=== PATIENT | female | born 1985 | race African-American/Black ===

== ENCOUNTER 2016-11-25 23:23 | Emergency (ER) | payer MEDICAID ==
[~2016-11-25] VITALS: Ht 165.1 cm; Wt 73.9 kg
[2016-11-26] MEDS ORDERED: 0.9 % SODIUM CHLORIDE 10 ML DISP.SYRIN. IV PRN
[2016-11-26] MEDS ORDERED: IV NORMAL SALINE 1,000ML 1,000 ML IV SCH
[2016-11-26] MEDS ORDERED: ONDANSETRON PF 4 MG/2 ML VIAL. IV ONE (00:15)
[2016-11-26] MEDS ORDERED: HYDROmorphone PF 1 MG/ML DISP.SYRIN IV/SQ PRN (00:15)
--- NOTE | 2016-11-26 00:18 | PHYS DOC ---
Past History Past Medical History: Sickle Cell Disease Past Surgical History: Smoking: Non-smoker Alcohol Use: None Drug Use: None Adult General Chief Complaint Chief Complaint: GENERALIZED BODY ACHES HPI HPI He is a pleasant 31-year-old -[place] female with known history of sickle cell disease who has never been our facility but comes to us today with her boyfriend because she is in a pain crisis. She is apparently visiting from [place] is going back tomorrow but she is coming on with her typical lower extremity pain crisis. She denies any fevers chills or recent URI symptoms UTI symptoms or recent cough does admit to not eating and drinking as well as she normally does not sleeping well while visiting her boyfriend. She has had frequent history of the same lower extremity pain which is typical for her this described as a throbbing aching it's been going on for several hours and her lower legs. There is nothing new about these symptoms there's no back pain no fevers no neurologic deficits she has noticed some mild discoloration of the fingertips not blue in nature but pink in color. She denies any chest pain and shortness of breath she feels similar to move and kick. She is a 021 at about 32 weeks via last menstrual period she is beginning her dental care and [place] with her primary FINE HAIRER. This point she denies any other complaints like skin changes rash or nausea vomiting or diarrhea. She also denies any change in medications. Review of Systems Review of Systems Constitutional: Denies fever or chills [] Eyes: Denies change in visual acuity, redness, or eye pain [] HENT: Denies nasal congestion or sore throat [] Respiratory: Denies cough or shortness of breath [] Cardiovascular: No additional information not addressed in HPI [] GI: Denies abdominal pain, nausea, vomiting, bloody stools or diarrhea [] : Denies dysuria or hematuria [] Musculoskeletal: lower leg pain Integument: Denies rash or skin lesions [] Neurologic: Denies headache, focal weakness or sensory changes [] Endocrine: Denies polyuria or polydipsia [] Current Medications Current Medications Current Medications Medications (Trade) Dose Ordered Sig/Marsha Start Time Stop Time Status Last Admin Dose Admin Hydromorphone HCl (Dilaudid) 1 mg PRN Q15MIN PRN 11/26/16 00:00 5/7/17 23:59 UNV Ondansetron HCl (Zofran) 4 mg 1X ONCE 11/26/16 00:00 11/26/16 00:01 UNV Sodium Chloride (Normal Saline Flush) 10 ml QSHIFT PRN 11/26/16 00:00 UNV Allergies Allergies Pen VK unknown reaction Demerol reaction hallucinations Morphine reaction nausea and vomiting abdominal cramping Physical Exam Physical Exam Constitutional: Well developed, well nourished, no acute distress, non-toxic appearance. [] HENT: Normocephalic, atraumatic, bilateral external ears normal, oropharynx moist, no oral exudates, nose normal. [] Eyes: PERRLA, EOMI, conjunctiva normal, no discharge. [] Neck: Normal range of motion, no tenderness, supple, no stridor. [] Cardiovascular:Heart rate regular rhythm, no murmur [] Lungs & Thorax: Bilateral breath sounds clear to auscultation [] Abdomen: Bowel sounds normal, soft, no tenderness, no masses, no pulsatile masses. [] Skin: Warm, dry, no erythema, no rash. [] Back: No tenderness, no CVA tenderness. [] Extremities: No tenderness, no cyanosis, no clubbing, ROM intact, no edema. [] Neurologic: Alert and oriented X 3, normal motor function, normal sensory function, no focal deficits noted. [] Psychologic: Affect normal, judgement normal, mood normal. [] Current Patient Data Vital Signs Vital Sign - Last 24 Hours 11/25/16 23:45 Temp 98.5 Pulse 97 Resp 20 Pulse Ox 95 O2 Delivery Room Air EKG EKG [] Radiology/Procedures Radiology/Procedures [] Course & Med Decision Making Course & Med Decision Making Pertinent Labs and Imaging studies reviewed. (See chart for details) [Is a pleasant 31-year-old female presents with typical pain crisis in her lower extremities of her joints and lower legs with her sickle cell disease. She was last hospitalized several weeks ago with similar presentation in [place]. She denies any fevers or chills denies any new symptoms admits she has been eating or sleeping as well as she is visiting her boyfriend from [place] this point time she still feels her baby without issue heart tones are checked and are normal. Patient's white blood cell count is elevated at 17,000 but this may be due to accommodation of her being as well as her acute pain syndrome. She has a predominance of neutrophils immature cells which is typical for this presentation being and having sickle cell crisis. She is feeling pain is improved with fluids and Dilaudid, Zofran and Benadryl. She has no nausea and no abdominal pain no chest pain no shortness of breath no neurologic complaints this time. Patient will be discharged with oral medications to include Zofran and Percocet which is what she typically takes for her pain crises she is returning to her primary care and she went tomorrow in [place]. She was given precautions here in the emergency department to return for any worsening symptoms fevers chills or other issues. We did an evaluation of her urinalysis which demonstrated some bacteria, white blood cells , epithelial cells, and blood but unfortunately this urine was contaminated I do not believe that a source for her pain is from infection like in her lungs or her urine which is the typical supporting event causes pain crises. At this point patient will be given all challenge and then discharged home. Impression: Sickle cell pain crisis Disposition discharged home with 48 hour follow-up with her primary care doctor and COLLAR SHAPER OPERATOR. Disposition includes discharge instructions when to return for cautions and treatment instructions for the use of narcotics and Zofran.] Dragon Disclaimer Dragon Disclaimer This chart was dictated in whole or in part using Voice Recognition software in a busy, high-work load, and often noisy Emergency Department environment. It may contain unintended and wholly unrecognized errors or omissions. Departure Departure: Impression: Primary Impression: Sickle cell pain crisis Additional Impression: Leukocytosis Disposition: 01 HOME, SELF-CARE Condition: IMPROVED Referrals: PCP,NO (PCP) Patient Instructions: Sickle Cell Anemia, Sickle Cell Pain Crisis Additional Instructions: Please return immediately for any new or increasing pain despite treatment with oral medications. Please return for any fever greater 102.2 despite treatment please return for any question or concern she might have oriented do not failure child moving at approximately 8-12 hours. I would advise that you follow up with her primary care COLLAR SHAPER OPERATOR when you return to [place] next 24-48 hours Scripts Ondansetron (ZOFRAN ODT) 8 Mg Tab.rapdis 8 MG PO TID, #14 Prov: CELESTINA MILAN MD 11/26/16 Oxycodone Hcl/Acetaminophen (PERCOCET 5-325 MG TABLET) 1 Each Tablet 1-2 TAB PO Q4-6HRS, #15 TAB Prov: CELESTINA MILAN MD 11/26/16 Problem Qualifiers CELESTINA MILAN MD November 26, 2016 00:18
[2016-11-26 00:49] LABS: BASO # 0.1 x10^3/uL (0.0-0.2); BASO % 0 % (0-3); EOS # 0.1 x10^3/uL (0.0-0.7); EOS % 1 % (0-3); HEMATOCRIT 27.6 % (36.0-47.0); HEMOGLOBIN 9.5 g/dL (12.0-15.5); LYMPH % 18 % (24-48); MEAN CORPUSCULAR HEMOGLOBIN 31 pg (25-35); MEAN CORPUSCULAR HGB CONC 35 g/dL (31-37); MEAN CORPUSCULAR VOLUME 91 fL (79-100); MONO # 1.1 x10^3/uL (0.0-1.1); MONO % 6 % (0-9); NEUT # 12.8 x10^3uL (1.8-7.7); NEUT % 75 % (31-73); PLATELET COUNT 410 x10^3/uL (140-400); RED BLOOD COUNT 3.03 x10^6/uL (3.50-5.40); RED CELL DISTRIBUTION WIDTH 19.1 % (11.5-14.5)
[2016-11-26 00:53] LABS: BILIRUBIN,URINE NEG (NEG); CLARITY,URINE CLEAR; COLOR,URINE YELLOW; GLUCOSE,URINE NEG (NEG); NITRITE,URINE NEG (NEG); UROBILINOGEN,URINE 0.2 mg/dL (0.2 mg/dL)
[2016-11-26 00:54] LABS: BACTERIA,URINE FEW /HPF (0-FEW); RBC,URINE OCC /HPF (0-2); SQUAMOUS EPITHELIAL CELL,UR OCC /LPF; WBC,URINE OCC /HPF (0-4)
[2016-11-26 01:00] LABS: ALBUMIN 2.6 g/dL (3.4-5.0); ALBUMIN/GLOBULIN RATIO 0.6 (1.0-1.7); CALCIUM 8.9 mg/dL (8.5-10.1); CREATININE 0.7 mg/dL (0.6-1.0); GFR 98.3; POTASSIUM 3.5 mmol/L (3.5-5.1); TOTAL BILIRUBIN 0.7 mg/dL (0.2-1.0); TOTAL PROTEIN 7.1 g/dL (6.4-8.2)
[2016-11-26] MEDS ORDERED: HYDROmorphone PF 1 MG/ML DISP.SYRIN IV ONE (01:00)
[2016-11-26] MEDS ORDERED: CALCIUM CARBONATE 500 MG TAB.CHEW PO PRN (01:00)
[2016-11-26 01:30] LABS: % LYMPHS 17 % (24-48); % MONOS 13 % (0-10); % SEGS 70 % (35-66)
[2016-11-26] MEDS ORDERED: diphenhydrAMINE 50 MG/ML VIAL IVP ONE (01:30)
[2016-11-26 01:31] LABS: ANISOCYTOSIS MARKED; HYPOCHROMIA MARKED; PLT ESTIMATE INCREASED (ADEQUATE); POIKILOCYTOSIS SLIGHT; POLYCHROMASIA MOD
[2016-11-26 01:32] LABS: HYPERSEGS PRESENT; TARGET CELLS OCC
[2016-11-26 01:33] LABS: OVALOCYTES OCC
[2016-11-26] MEDS ORDERED: OXYC-323 PO (01:52)
[2016-11-26] MEDS ORDERED: ONDA8TAB12 PO (01:52)
[2016-11-26 02:25] VITALS: BP 111/54
== END 2016-11-26 02:25 | disposition home or self-care (01) ==
LOC: ER 23:23
DX: O99.013 Anemia complicating pregnancy, third trimester (principal); D72.829 Elevated white blood cell count, unspecified; D57.00 Hb-SS disease with crisis, unspecified; Z3A.32 32 weeks gestation of pregnancy; Z88.0 Allergy status to penicillin; Z88.5 Allergy status to narcotic agent; Z88.8 Allergy status to other drugs, medicaments and biological substances
CPT/HCPCS: 36415; 80053; 81001; 85007; 85027; 85045; 96361; 96374; 96375; 99285; J1170; J1200; J2405; J7030

== ENCOUNTER 2017-02-28 22:30 | Emergency (ER) | payer MEDICAID ==
[~2017-02-28] VITALS: Ht 165.1 cm; Wt 73.9 kg
[2017-02-28 22:30] VITALS: BP 133/76
[~2017-02-28 22:30] MED LIST: ONDA8TAB12 PO; OXYC-323 PO
--- NOTE | 2017-02-28 23:10 | PHYS DOC ---
Past History Past Medical History: Sickle Cell Disease Past Surgical History: Smoking: Non-smoker Alcohol Use: None Drug Use: None Adult General Chief Complaint Chief Complaint: BACK PAIN OR INJURY HPI HPI Patient is a age year old female who presents with complaint of right-sided back and shoulder pain. The patient states she has history of sickle cell anemia. The patient states that she recently moved to the [facility] from [place]. The patient was seen in this emergency department on November 25, 2016 and was treated for sickle cell pain crisis at that time. Patient states that she traveled back to [place] and saw her physician after that visit. Patient states that she has recently moved back here within the last week and states that she plans on staying here. The patient states that she has Percocet at home which she takes as needed for pain symptoms. Patient states that she took this approximately 2 hours prior to arrival and states that this has not helped with her pain. The patient currently rates her pain as 9 out of 10 on my evaluation. Patient states that she has full range of motion in her right upper extremity. Patient states her symptoms feel similar to previous pain crisis issues. Denies chest pain, shortness of breath, or fever. Review of Systems Review of Systems Constitutional: Denies fever or chills [] Eyes: Denies change in visual acuity, redness, or eye pain [] HENT: Denies nasal congestion or sore throat [] Respiratory: Denies cough or shortness of breath [] Cardiovascular: Denies chest pain or edema [] GI: Denies abdominal pain, nausea, vomiting, bloody stools or diarrhea [] : Denies dysuria or hematuria [] Musculoskeletal: Back pain, right shoulder pain [] Integument: Denies rash or skin lesions [] Neurologic: Denies headache, focal weakness or sensory changes [] Allergies Allergies Allergies Coded Allergies Type Severity Reaction Last Updated Verified meperidine Allergy Intermediate HALLUCINATIONS 11/26/16 Yes Penicillins Allergy Unknown 11/26/16 Yes morphine Adverse Reaction Intermediate NAUSEA AND VOMITING 11/26/16 Yes Physical Exam Physical Exam Constitutional: Alert, afebrile, appears in mild to moderate discomfort. [] HENT: Normocephalic, atraumatic, bilateral external ears normal, oropharynx moist, no oral exudates, nose normal. [] Eyes: PERRLA, EOMI, conjunctiva normal, no discharge. [] Neck: Normal range of motion, no tenderness, supple, no stridor. [] Cardiovascular:Heart rate regular rhythm, no murmur [] Lungs & Thorax: Bilateral breath sounds clear to auscultation [] Abdomen: Bowel sounds normal, soft, no tenderness, no masses, no pulsatile masses. [] Skin: Warm, dry, no erythema, no rash. [] Back: Right upper and mid thoracic muscle tenderness to palpation, no CVA tenderness. [] Extremities: Mild tenderness to palpation over right deltoid, no cyanosis, no clubbing, ROM intact, no edema. [] Neurologic: Alert and oriented X 3, normal motor function, normal sensory function, no focal deficits noted. [] Current Patient Data Vital Signs Vital Signs Date Time Temp Pulse Resp B/P (MAP) Pulse Ox O2 Delivery O2 Flow Rate FiO2 02/28/17 23:40 20 98 Room Air 02/28/17 22:30 98.8 67 Lab Results Laboratory Tests Test 02/28/17 23:18 02/28/17 23:50 Bedside Urine HCG, Qualitative hcg negative White Blood Count 11.0 x10^3/uL Red Blood Count 3.76 x10^6/uL Hemoglobin 10.0 g/dL Hematocrit 28.8 % Mean Corpuscular Volume 77 fL Mean Corpuscular Hemoglobin 27 pg Mean Corpuscular Hemoglobin Concent 35 g/dL Red Cell Distribution Width 21.3 % Platelet Count 380 x10^3/uL Neutrophils (%) (Auto) 58 % Lymphocytes (%) (Auto) 29 % Monocytes (%) (Auto) 7 % Eosinophils (%) (Auto) 4 % Basophils (%) (Auto) 2 % Neutrophils # (Auto) 6.4 x10^3uL Lymphocytes # (Auto) 3.2 x10^3/uL Monocytes # (Auto) 0.7 x10^3/uL Eosinophils # (Auto) 0.5 x10^3/uL Basophils # (Auto) 0.2 x10^3/uL Platelet Estimate Adequate Giant Platelets Few Hypochromasia Slight Anisocytosis Mod Microcytosis Slight Sodium Level 142 mmol/L Potassium Level 3.1 mmol/L Chloride Level 107 mmol/L Carbon Dioxide Level 27 mmol/L Anion Gap 8 Blood Urea Nitrogen 6 mg/dL Creatinine 1.0 mg/dL Estimated GFR (Cockcroft-Gault) 78.8 Glucose Level 100 mg/dL Calcium Level 8.4 mg/dL Current Medications Medications (Trade) Dose Ordered Sig/Marsha Route PRN Reason Start Time Stop Time Status Last Admin Dose Admin Hydromorphone HCl (Dilaudid) 1 mg 1X ONCE IM 02/28/17 23:30 03/01/17 00:01 DC 02/28/17 23:40 Ondansetron HCl (Zofran Odt) 4 mg 1X ONCE PO 02/28/17 23:30 03/01/17 00:01 DC 02/28/17 23:40 EKG EKG Not performed [] Radiology/Procedures Radiology/Procedures Not performed [] Course & Med Decision Making Course & Med Decision Making Pertinent Labs and Imaging studies reviewed. (See chart for details) Patient was given IM Dilaudid and oral Zofran in the emergency department. Vital signs are stable. Hemoglobin appears stable from previous visit. Patient will be discharged with referral to Dr. Naik of Hematology in 1-2 weeks for follow up of her Sickle Cell Anemia. Advised continued use of home pain medication as needed. Recommended return to the emergency department for any worsening symptoms. Patient voiced understanding and in agreement with treatment plan.[] Dragon Disclaimer Dragon Disclaimer This chart was dictated in whole or in part using Voice Recognition software in a busy, high-work load, and often noisy Emergency Department environment. It may contain unintended and wholly unrecognized errors or omissions. Departure Departure: Impression: Primary Impression: Sickle cell pain crisis Disposition: HOME, SELF-CARE Condition: IMPROVED Referrals: LEA NAIK MD Patient Instructions: Sickle Cell Pain Crisis Additional Instructions: Follow up with Dr. Naik of Hematology in 1-2 weeks. [facility] has a Sickle Cell clinic. Contact them at for more information and to schedule an appointment for your child as needed. Return to the emergency department for any worsening symptoms. MICKY HUNT MD Feb 28, 2017 23:10
[2017-02-28] MEDS ORDERED: ONDANSETRON ODT 4 MG TAB.RAPDIS PO ONE (23:30)
[2017-02-28] MEDS ORDERED: HYDROmorphone PF 1 MG/ML DISP.SYRIN IM ONE (23:30)
[2017-03-01 00:07] LABS: BASO # 0.2 x10^3/uL (0.0-0.2); BASO % 2 % (0-3); EOS # 0.5 x10^3/uL (0.0-0.7); EOS % 4 % (0-3); HEMATOCRIT 28.8 % (36.0-47.0); LYMPH # 3.2 x10^3/uL (1.0-4.8); LYMPH % 29 % (24-48); MEAN CORPUSCULAR HEMOGLOBIN 27 pg (25-35); MEAN CORPUSCULAR HGB CONC 35 g/dL (31-37); MEAN CORPUSCULAR VOLUME 77 fL (79-100); MONO # 0.7 x10^3/uL (0.0-1.1); MONO % 7 % (0-9); NEUT # 6.4 x10^3uL (1.8-7.7); NEUT % 58 % (31-73); PLATELET COUNT 380 x10^3/uL (140-400); RED BLOOD COUNT 3.76 x10^6/uL (3.50-5.40); RED CELL DISTRIBUTION WIDTH 21.3 % (11.5-14.5)
[2017-03-01 00:08] LABS: CALCIUM 8.4 mg/dL (8.5-10.1); GFR 78.8; POTASSIUM 3.1 mmol/L (3.5-5.1)
[2017-03-01 00:15] LABS: COLOR,URINE YELLOW
[2017-03-01 00:16] LABS: BACTERIA,URINE FEW /HPF (0-FEW); BILIRUBIN,URINE NEG (NEG); CLARITY,URINE HAZY; GLUCOSE,URINE NEG (NEG); NITRITE,URINE NEG (NEG); UROBILINOGEN,URINE 0.2 mg/dL (0.2 mg/dL)
[2017-03-01 00:17] LABS: SQUAMOUS EPITHELIAL CELL,UR FEW /LPF
[2017-03-01 00:50] LABS: ANISOCYTOSIS MOD; HYPOCHROMIA SLIGHT; PLT ESTIMATE ADEQUATE (ADEQUATE)
[2017-03-01 00:51] LABS: MICROCYTOSIS SLIGHT
== END 2017-03-01 00:45 | disposition home or self-care (01) ==
LOC: ER 22:30
DX: D57.00 Hb-SS disease with crisis, unspecified (principal); Z88.5 Allergy status to narcotic agent; Z88.0 Allergy status to penicillin; Z88.8 Allergy status to other drugs, medicaments and biological substances
CPT/HCPCS: 36415; 80048; 81001; 81025; 85008; 85027; 85045; 87086; 96372; 99284; J1170; Q0162

== ENCOUNTER 2017-03-12 17:41 | Emergency (ER) | payer MEDICAID ==
[~2017-03-12] VITALS: Ht 170.2 cm; Wt 74.8 kg
[2017-03-12] MEDS ORDERED: 0.9 % SODIUM CHLORIDE 10 ML DISP.SYRIN. IV PRN (18:30)
[2017-03-12] MEDS ORDERED: HYDROmorphone PF 1 MG/ML DISP.SYRIN IV/SQ PRN (18:30)
--- NOTE | 2017-03-12 18:33 | PHYS DOC ---
Past History Past Medical History: Sickle Cell Disease Past Surgical History: Smoking: Non-smoker Alcohol Use: None Drug Use: None Adult General Chief Complaint Chief Complaint: GENERALIZED BODY ACHES [facility] HPI She is a pleasant 31-year-old female with history of sickle cell disease who has been to our facility now on her third visit for sickle cell crisis. Her typical crisis of ulcer right shoulder her lower legs and arms bilaterally. There is nothing new about this particular event. Her pain began 2 days ago as got progressively worse as she has run out of her Vicodin. She is recently visited her boyfriend from out of town back in November this facility for pain crisis. She's been our facility now a second time. She has no local primary care physician, she has no local stacker tender. She was referred to the specialist which she came to us in the last 6 weeks. She is Under a Medicare treatment plan does not allow her to receive treatment as she has not transferred those benefits to the state. She knows that she has limited resources and comes here today to refill her medications. She also also asked us to treat her pain. Patient denies any fever, chills, focal neurologic deficits, chest pain, shortness breath, abdominal pain, nausea, vomiting, diarrhea, URI symptoms, UTI symptoms other symptoms. She denies rash or swollen joints. Her pain presently is an 8 of 10 it is not worse with position or movement. Review of Systems Review of Systems Constitutional: Denies fever or chills [] Eyes: Denies change in visual acuity, redness, or eye pain [] HENT: Denies nasal congestion or sore throat [] Respiratory: Denies cough or shortness of breath [] Cardiovascular: No additional information not addressed in HPI [] GI: Denies abdominal pain, nausea, vomiting, bloody stools or diarrhea [] : Denies dysuria or hematuria [] Musculoskeletal: He complains of lower back pain, right shoulder pain lower leg pain bilaterally. This is her typical crisis. Integument: Denies rash or skin lesions [] Neurologic: Denies headache, focal weakness or sensory changes [] Endocrine: Denies polyuria or polydipsia [] Allergies Allergies Allergies Coded Allergies Type Severity Reaction Last Updated Verified meperidine Allergy Intermediate HALLUCINATIONS 11/26/16 Yes Penicillins Allergy Unknown 11/26/16 Yes morphine Adverse Reaction Intermediate NAUSEA AND VOMITING 11/26/16 Yes Physical Exam Physical Exam Vital signs recorded on the chart they're within normal limits. Constitutional: Well developed, well nourished, uncomfortable but nontoxic in appearance no acute distress. HENT: Normocephalic, atraumatic, bilateral external ears normal, oropharynx moist, no oral exudates, nose normal. [] Eyes: PERRLA, EOMI, conjunctiva normal, no discharge. [] Neck: Normal range of motion, no tenderness, supple, no stridor. [] Cardiovascular:Heart rate regular rhythm, no murmur [] Lungs & Thorax: Bilateral breath sounds clear to auscultation [] Abdomen: Bowel sounds normal, soft, no tenderness, no masses, no pulsatile masses. [] Skin: Warm, dry, no erythema, no rash. [] Back: No tenderness, no CVA tenderness. [] Extremities: She has tenderness but no soft tissue swelling of the lateral right shoulder. She has no tenderness in the legs bilaterally she has normal range of motion in the legs bilaterally with no edema no clubbing and no cyanosis. Patient has no rash that is identifiable on upper and lower extremities. Neurologic: Alert and oriented X 3, normal motor function, normal sensory function, no focal deficits noted. [] Psychologic: Affect normal, judgement normal, mood normal. [] Current Patient Data Vital Signs Vital Signs Date Time Temp Pulse Resp B/P (MAP) Pulse Ox O2 Delivery O2 Flow Rate FiO2 03/12/17 17:41 99.0 75 20 96 Room Air Lab Results Laboratory Tests Test 03/12/17 18:30 03/12/17 18:50 03/12/17 19:16 Urine Collection Type Unknown Urine Color Yellow Urine Clarity Clear Urine pH 5.5 Urine Specific [employer] [place] 1.015 Urine Protein Neg (NEG-TRACE) Urine Glucose (UA) Neg mg/dL (NEG) Urine Ketones (Stick) Neg mg/dL (NEG) Urine Blood Neg (NEG) Urine Nitrite Neg (NEG) Urine Bilirubin Neg (NEG) Urine Urobilinogen Dipstick 0.2 mg/dL (0.2 mg/dL) Urine Leukocyte Esterase Neg (NEG) Urine RBC Rare /HPF (0-2) Urine WBC 1-4 /HPF (0-4) Urine Squamous Epithelial Cells None /LPF Urine Bacteria 0 /HPF (0-FEW) Urine Mucus Mod /LPF White Blood Count 7.7 x10^3/uL (4.0-11.0) Red Blood Count 3.84 x10^6/uL (3.50-5.40) Hemoglobin 10.3 g/dL (12.0-15.5) L Hematocrit 29.7 % (36.0-47.0) L Mean Corpuscular Volume 77 fL (79-100) L Mean Corpuscular Hemoglobin 27 pg (25-35) Mean Corpuscular Hemoglobin Concent 35 g/dL (31-37) Red Cell Distribution Width 21.4 % (11.5-14.5) H Platelet Count 294 x10^3/uL (140-400) Neutrophils (%) (Auto) 44 % (31-73) Lymphocytes (%) (Auto) 46 % (24-48) Monocytes (%) (Auto) 6 % (0-9) Eosinophils (%) (Auto) 3 % (0-3) Basophils (%) (Auto) 1 % (0-3) Neutrophils # (Auto) 3.4 x10^3uL (1.8-7.7) Lymphocytes # (Auto) 3.5 x10^3/uL (1.0-4.8) Monocytes # (Auto) 0.5 x10^3/uL (0.0-1.1) Eosinophils # (Auto) 0.2 x10^3/uL (0.0-0.7) Basophils # (Auto) 0.1 x10^3/uL (0.0-0.2) Sodium Level 142 mmol/L (136-145) Potassium Level 3.0 mmol/L (3.5-5.1) L Chloride Level 107 mmol/L (98-107) Carbon Dioxide Level 25 mmol/L (21-32) Anion Gap 10 (6-14) Blood Urea Nitrogen 4 mg/dL (7-20) L Creatinine 0.8 mg/dL (0.6-1.0) Estimated GFR (Cockcroft-Gault) 101.9 BUN/Creatinine Ratio 5 (6-20) L Glucose Level 85 mg/dL (70-99) Calcium Level 8.5 mg/dL (8.5-10.1) Total Bilirubin 0.9 mg/dL (0.2-1.0) Aspartate Amino Transferase (AST) 19 U/L (15-37) Alanine Aminotransferase (ALT) 20 U/L (14-59) Alkaline Phosphatase 75 U/L (46-116) Total Protein 7.3 g/dL (6.4-8.2) Albumin 3.7 g/dL (3.4-5.0) Albumin/Globulin Ratio 1.0 (1.0-1.7) POC Urine HCG, Qualitative hcg negative (Negative) EKG EKG [] Radiology/Procedures Radiology/Procedures [] Course & Med Decision Making Course & Med Decision Making Pertinent Labs and Imaging studies reviewed. (See chart for details) she presents with a typical pain crisis from her sickle cell disease. Our objective today's get her pain under better control at about 3 or lower. She understands that the ER is not placed to get her typical follow-up. We have again discussed follow-up with hematology and a local primary care physician. Last time she was here she was provided stacker tender name. She realizes that one of her challenges is local lack of insurance. We will do we can help her provide her at least a short course of pain medications and antinausea medications until she can see some later this week. We have given her a complete follow-up with primary care physician willing to see new patients in the local community. Time is now 7:30 PM Patient tells me that their symptoms given during CC are improved. We reviewed labs and radiology reports with patient patient's pain is now 5 out of 10 which is improved from her presentation. Her CBC is done showing mild anemia but not require any transfusions. Patient has mild hypokalemia as well reticulocyte count is still pending at this time. Patient is not and her urine looks clear. Had redosed Benadryl and Dilaudid and a continued liter of fluids. [] Dragon Disclaimer Dragon Disclaimer This chart was dictated in whole or in part using Voice Recognition software in a busy, high-work load, and often noisy Emergency Department environment. It may contain unintended and wholly unrecognized errors or omissions. Departure Departure: Impression: Primary Impression: Sickle cell crisis Disposition: 01 HOME, SELF-CARE Condition: STABLE Referrals: PCP,MICHAEL (PCP) LEA BROWN MD Patient Instructions: Hypokalemia, Sickle Cell Anemia, Sickle Cell Pain Crisis Additional Instructions: Please return for any new or increasing symptoms despite treatment. I would encourage her to follow up with the stacker tender referred above. Please follow- up primary care doctor to help you with your chronic management of your issues. Hipolito Haddad MD [facility] [address] [place] [address] Status: Category: Courtesy Specialty: Hematology Specialty2: Internal Medicine Pager: Department: Medicine Bogdan Sanchez MD [facility] [address] [place] [address] [phone] Status: Category: Courtesy Specialty: Hematology Specialty2: Pager: Department: Medicine Landon Nieves MD [facility] [address] [place] [address] [phone] Status: Category: Courtesy Specialty: Hematology Specialty2: Pager: Department: Medicine Scripts Metoclopramide Hcl (REGLAN) 10 Mg Tablet 1 TAB PO TID, #20 TAB Prov: CELESTINA MILAN MD 03/12/17 Diphenhydramine Hcl (BENADRYL) 25 Mg Capsule 25 MG PO QID for 7 Days, #28 CAP Prov: CELESTINA MILAN MD 03/12/17 Hydrocodone Bit/Acetaminophen (HYDROCODONE-APAP 5-325 ) 1 Each Tablet 1 TAB PO PRN Q6HRS Y for PAIN for 7 Days, #14 TAB 0 Refills Prov: CELESTINA MILAN MD 03/12/17 CELESTINA MILAN MD Mar 12, 2017 18:33
[2017-03-12] MEDS ORDERED: ONDANSETRON PF 4 MG/2 ML VIAL. IV ONE (18:35)
[2017-03-12] MEDS ORDERED: IV NORMAL SALINE 1,000ML 1,000 ML IV SCH (18:35)
[2017-03-12] MEDS ORDERED: diphenhydrAMINE 50 MG/ML VIAL IVP ONE ×2 (19:15→20:20)
[2017-03-12 19:25] LABS: BASO # 0.1 x10^3/uL (0.0-0.2); BASO % 1 % (0-3); EOS # 0.2 x10^3/uL (0.0-0.7); EOS % 3 % (0-3); HEMATOCRIT 29.7 % (36.0-47.0); HEMOGLOBIN 10.3 g/dL (12.0-15.5); LYMPH # 3.5 x10^3/uL (1.0-4.8); LYMPH % 46 % (24-48); MEAN CORPUSCULAR HEMOGLOBIN 27 pg (25-35); MEAN CORPUSCULAR HGB CONC 35 g/dL (31-37); MEAN CORPUSCULAR VOLUME 77 fL (79-100); MONO # 0.5 x10^3/uL (0.0-1.1); MONO % 6 % (0-9); NEUT # 3.4 x10^3uL (1.8-7.7); NEUT % 44 % (31-73); PLATELET COUNT 294 x10^3/uL (140-400); RED BLOOD COUNT 3.84 x10^6/uL (3.50-5.40); RED CELL DISTRIBUTION WIDTH 21.4 % (11.5-14.5); WHITE BLOOD COUNT 7.7 x10^3/uL (4.0-11.0)
[2017-03-12 19:34] LABS: ALBUMIN 3.7 g/dL (3.4-5.0); CALCIUM 8.5 mg/dL (8.5-10.1); CREATININE 0.8 mg/dL (0.6-1.0); GFR 101.9; TOTAL BILIRUBIN 0.9 mg/dL (0.2-1.0); TOTAL PROTEIN 7.3 g/dL (6.4-8.2)
[2017-03-12 20:04] LABS: BACTERIA,URINE 0 /HPF (0-FEW); BILIRUBIN,URINE NEG (NEG); CLARITY,URINE CLEAR; COLOR,URINE YELLOW; GLUCOSE,URINE NEG (NEG); NITRITE,URINE NEG (NEG); RBC,URINE RARE /HPF (0-2); UROBILINOGEN,URINE 0.2 mg/dL (0.2 mg/dL)
[2017-03-12] MEDS ORDERED: HYDROmorphone PF 1 MG/ML DISP.SYRIN IV ONE (20:20)
[2017-03-12] MEDS ORDERED: DIPH25CA58 PO (20:23)
[2017-03-12] MEDS ORDERED: HYDR-2758 PO (20:23)
[2017-03-12] MEDS ORDERED: METO10TA81 PO (20:23)
[2017-03-12 20:40] VITALS: BP 118/70
[2017-03-12 22:05] LABS: PLT ESTIMATE ADEQUATE (ADEQUATE)
[2017-03-12 22:06] LABS: ANISOCYTOSIS MOD; HYPOCHROMIA MOD; MICROCYTOSIS MOD; POLYCHROMASIA PRESENT; TARGET CELLS MOD
[2017-03-12 22:07] LABS: OVALOCYTES FEW; TEAR DROP CELLS PRESENT
[2017-03-12 22:15] LABS: SCHISTOCYTES OCC
== END 2017-03-12 20:40 | disposition home or self-care (01) ==
LOC: ER 17:41
DX: D57.00 Hb-SS disease with crisis, unspecified (principal); M25.511 Pain in right shoulder; M79.662 Pain in left lower leg; Z88.5 Allergy status to narcotic agent; Z88.0 Allergy status to penicillin; Z88.8 Allergy status to other drugs, medicaments and biological substances
CPT/HCPCS: 36415; 80053; 81001; 81025; 85025; 85045; 96361; 96374; 96375; 96376; 99285; J1170; J1200; J2405; J7030

== ENCOUNTER 2017-04-14 02:34 | Emergency (ER) | payer SELFPAY ==
[~2017-04-14] VITALS: Ht 170.2 cm; Wt 74.8 kg
[~2017-04-14 02:34] MED LIST changes: +DIPH25CA58 PO; +HYDR-2758 PO; +METO10TA81 PO
[2017-04-14] MEDS ORDERED: IV NORMAL SALINE 1,000ML 1,000 ML IV ONE (03:15)
[2017-04-14 04:42] LABS: BACTERIA,URINE FEW /HPF (0-FEW); BILIRUBIN,URINE NEG (NEG); CLARITY,URINE CLEAR; COLOR,URINE YELLOW; GLUCOSE,URINE NEG (NEG); NITRITE,URINE NEG (NEG); RBC,URINE OCC /HPF (0-2); SQUAMOUS EPITHELIAL CELL,UR FEW /LPF; U PREG PATIENT NEGATIVE (NEG); UROBILINOGEN,URINE 1 mg/dL (0.2 mg/dL); WBC,URINE OCC /HPF (0-4)
[2017-04-14] MEDS ORDERED: HYDROmorphone PF 1 MG/ML DISP.SYRIN IM ONE (05:15)
[2017-04-14] MEDS ORDERED: diphenhydrAMINE 50 MG/ML VIAL ONE (05:32)
[2017-04-14] MEDS ORDERED: HYDROmorphone PF 1 MG/ML DISP.SYRIN IV ONE ×2 (06:00→07:00)
--- NOTE | 2017-04-14 06:01 | PHYS DOC ---
Past History Past Medical History: Sickle Cell Disease Past Surgical History: Smoking: Non-smoker Alcohol Use: None Drug Use: None Adult General Chief Complaint Chief Complaint: BACK PAIN - NO INJURY HPI HPI Patient is a 31 year old F who presents with back and right shoulder pain. Philip has a history of sickle cell anemia and the areas in which she is having pain currently are similar to previous. She does not describe any loss of blood. She denies dizziness and nausea. She denies abdominal pain at this time. She has no other associated signs or symptoms at this time. Review of Systems Review of Systems Constitutional: Denies fever or chills [] Eyes: Denies change in visual acuity, redness, or eye pain [] HENT: Denies nasal congestion or sore throat [] Respiratory: Denies cough or shortness of breath [] Cardiovascular: No additional information not addressed in HPI [] GI: Denies abdominal pain, nausea, vomiting, bloody stools or diarrhea [] : Denies dysuria or hematuria [] Musculoskeletal: Negative except history of present illness Integument: Denies rash or skin lesions [] Neurologic: Denies headache, focal weakness or sensory changes [] Endocrine: Denies polyuria or polydipsia [] Family History Family History Family history of sickle cell anemia Current Medications Current Medications Current Medications Medications (Trade) Dose Ordered Sig/Marsha Start Time Stop Time Status Last Admin Dose Admin Diphenhydramine HCl (Benadryl) 50 mg STK-MED ONCE 04/14/17 05:32 04/14/17 05:33 DC Hydromorphone HCl (Dilaudid) 1 mg 1X ONCE 04/14/17 06:00 04/14/17 06:01 UNV 04/14/17 05:30 1 MG Sodium Chloride 1,000 ml @ 1,000 mls/hr 1X ONCE 04/14/17 03:15 04/14/17 04:14 DC 04/14/17 05:30 1,000 MLS/HR Allergies Allergies Allergies Coded Allergies Type Severity Reaction Last Updated Verified meperidine Allergy Intermediate HALLUCINATIONS 11/26/16 Yes Penicillins Allergy Unknown 11/26/16 Yes morphine Adverse Reaction Intermediate NAUSEA AND VOMITING 11/26/16 Yes Physical Exam Physical Exam Constitutional: Well developed, well nourished, no acute distress, non-toxic appearance. [] HENT: Normocephalic, atraumatic, bilateral external ears normal, oropharynx moist, no oral exudates, nose normal. [] Eyes: PERRLA, EOMI, conjunctiva normal, no discharge. [] Neck: Normal range of motion, no tenderness, supple, no stridor. [] Cardiovascular:Heart rate regular rhythm, no murmur [] Lungs & Thorax: Bilateral breath sounds clear to auscultation [] Abdomen: Bowel sounds normal, soft, no tenderness, no masses, no pulsatile masses. [] Skin: Warm, dry, no erythema, no rash. [] Back: No tenderness, no CVA tenderness. [] Extremities: No tenderness, no cyanosis, no clubbing, ROM intact, no edema. [] Neurologic: Alert and oriented X 3, normal motor function, normal sensory function, no focal deficits noted. [] Psychologic: Affect normal, judgement normal, mood normal. [] Current Patient Data Vital Signs Vital Signs Date Time Temp Pulse Resp B/P (MAP) Pulse Ox O2 Delivery O2 Flow Rate FiO2 04/14/17 05:30 97 04/14/17 02:46 98.6 79 20 Room Air Lab Results Laboratory Tests Test 04/14/17 02:58 Urine Collection Type Unknown Urine Color Yellow Urine Clarity Clear Urine pH 6.5 Urine Specific [place] 1.015 Urine Protein Neg (NEG-TRACE) Urine Glucose (UA) Neg mg/dL (NEG) Urine Ketones (Stick) Neg mg/dL (NEG) Urine Blood Trace (NEG) Urine Nitrite Neg (NEG) Urine Bilirubin Neg (NEG) Urine Urobilinogen Dipstick 1 mg/dL (0.2 mg/dL) Urine Leukocyte Esterase Neg (NEG) Urine RBC Occ /HPF (0-2) Urine WBC Occ /HPF (0-4) Urine Squamous Epithelial Cells Few /LPF Urine Bacteria Few /HPF (0-FEW) Urine Mucus Slight /LPF Urine Test Negative (NEG) EKG EKG [] Radiology/Procedures Radiology/Procedures [] Course & Med Decision Making Course & Med Decision Making Pertinent Labs and Imaging studies reviewed. (See chart for details) Care was transferred to Dr. Teddy Kinney Disclaimer Gregoria Disclaimer This chart was dictated in whole or in part using Voice Recognition software in a busy, high-work load, and often noisy Emergency Department environment. It may contain unintended and wholly unrecognized errors or omissions. Departure Departure: Referrals: PCP,MICHAEL (PCP) NELLA SALDIVAR MD Apr 14, 2017 06:01
[2017-04-14 06:23] LABS: BASO % 0 % (0-3); EOS # 0.4 x10^3/uL (0.0-0.7); EOS % 4 % (0-3); HEMATOCRIT 28.9 % (36.0-47.0); HEMOGLOBIN 10.6 g/dL (12.0-15.5); LYMPH # 3.3 x10^3/uL (1.0-4.8); LYMPH % 31 % (24-48); MEAN CORPUSCULAR HEMOGLOBIN 30 pg (25-35); MEAN CORPUSCULAR HGB CONC 37 g/dL (31-37); MEAN CORPUSCULAR VOLUME 82 fL (79-100); MONO # 0.5 x10^3/uL (0.0-1.1); MONO % 5 % (0-9); NEUT # 6.2 x10^3uL (1.8-7.7); NEUT % 60 % (31-73); PLATELET COUNT 278 x10^3/uL (140-400); RED BLOOD COUNT 3.54 x10^6/uL (3.50-5.40); RED CELL DISTRIBUTION WIDTH 19.8 % (11.5-14.5); WHITE BLOOD COUNT 10.5 x10^3/uL (4.0-11.0)
[2017-04-14 06:24] LABS: ALBUMIN 3.8 g/dL (3.4-5.0); CALCIUM 8.6 mg/dL (8.5-10.1); CREATININE 0.8 mg/dL (0.6-1.0); GFR 101.9; POTASSIUM 3.7 mmol/L (3.5-5.1); TOTAL BILIRUBIN 0.9 mg/dL (0.2-1.0); TOTAL PROTEIN 7.6 g/dL (6.4-8.2)
[2017-04-14] MEDS ORDERED: diphenhydrAMINE 50 MG/ML VIAL IVP ONE ×2 (06:45→07:15)
--- NOTE | 2017-04-14 07:26 | PHYS DOC ---
Past History Past Medical History: Sickle Cell Disease Past Surgical History: Smoking: Non-smoker Alcohol Use: None Drug Use: None Adult General HPI HPI This is a continuation of the ED visit started by Dr. Dick. Review of Systems Review of Systems Current Medications Current Medications Allergies Allergies Physical Exam Physical Exam Current Patient Data Vital Signs Vital Signs Date Time Temp Pulse Resp B/P (MAP) Pulse Ox O2 Delivery O2 Flow Rate FiO2 04/14/17 05:30 97 04/14/17 02:46 98.6 79 20 Room Air Lab Results Laboratory Tests Test 04/14/17 02:58 04/14/17 05:52 Urine Collection Type Unknown Urine Color Yellow Urine Clarity Clear Urine pH 6.5 Urine Specific [place] 1.015 Urine Protein Neg (NEG-TRACE) Urine Glucose (UA) Neg mg/dL (NEG) Urine Ketones (Stick) Neg mg/dL (NEG) Urine Blood Trace (NEG) Urine Nitrite Neg (NEG) Urine Bilirubin Neg (NEG) Urine Urobilinogen Dipstick 1 mg/dL (0.2 mg/dL) Urine Leukocyte Esterase Neg (NEG) Urine RBC Occ /HPF (0-2) Urine WBC Occ /HPF (0-4) Urine Squamous Epithelial Cells Few /LPF Urine Bacteria Few /HPF (0-FEW) Urine Mucus Slight /LPF Urine Test Negative (NEG) White Blood Count 10.5 x10^3/uL (4.0-11.0) Red Blood Count 3.54 x10^6/uL (3.50-5.40) Hemoglobin 10.6 g/dL (12.0-15.5) L Hematocrit 28.9 % (36.0-47.0) L Mean Corpuscular Volume 82 fL (79-100) Mean Corpuscular Hemoglobin 30 pg (25-35) Mean Corpuscular Hemoglobin Concent 37 g/dL (31-37) Red Cell Distribution Width 19.8 % (11.5-14.5) H Platelet Count 278 x10^3/uL (140-400) Neutrophils (%) (Auto) 60 % (31-73) Lymphocytes (%) (Auto) 31 % (24-48) Monocytes (%) (Auto) 5 % (0-9) Eosinophils (%) (Auto) 4 % (0-3) H Basophils (%) (Auto) 0 % (0-3) Neutrophils # (Auto) 6.2 x10^3uL (1.8-7.7) Lymphocytes # (Auto) 3.3 x10^3/uL (1.0-4.8) Monocytes # (Auto) 0.5 x10^3/uL (0.0-1.1) Eosinophils # (Auto) 0.4 x10^3/uL (0.0-0.7) Basophils # (Auto) 0.0 x10^3/uL (0.0-0.2) Sodium Level 144 mmol/L (136-145) Potassium Level 3.7 mmol/L (3.5-5.1) Chloride Level 108 mmol/L (98-107) H Carbon Dioxide Level 26 mmol/L (21-32) Anion Gap 10 (6-14) Blood Urea Nitrogen 7 mg/dL (7-20) Creatinine 0.8 mg/dL (0.6-1.0) Estimated GFR (Cockcroft-Gault) 101.9 BUN/Creatinine Ratio 9 (6-20) Glucose Level 101 mg/dL (70-99) H Calcium Level 8.6 mg/dL (8.5-10.1) Total Bilirubin 0.9 mg/dL (0.2-1.0) Aspartate Amino Transferase (AST) 26 U/L (15-37) Alanine Aminotransferase (ALT) 29 U/L (14-59) Alkaline Phosphatase 86 U/L (46-116) Total Protein 7.6 g/dL (6.4-8.2) Albumin 3.8 g/dL (3.4-5.0) Albumin/Globulin Ratio 1.0 (1.0-1.7) EKG EKG [] Radiology/Procedures Radiology/Procedures [] Course & Med Decision Making Course & Med Decision Making Pertinent Labs and Imaging studies reviewed. (See chart for details) I assumed care of this patient from Dr. Dick at 0600. The patient was resting comfortably, getting IV fluids, waiting for lab results. The patient requested another dose of IV pain medication which I did order. Laboratory results are unremarkable for a patient with a history of sickle cell. I had been waiting for a retic count result, but was informed by labs at this test is sent out to a different facility. Therefore, we will not wait for this result. I rechecked the patient. She is sitting up in bed doing something on her phone. She is in no acute distress. She is alert and appropriate. We discussed the assessment and plan. She is new to the area and she does have an appointment in about a month coming up with a new forensic document examiner. She is comfortable with discharge. She was driven here today by her boyfriend and I told her no driving for 12 hours. See instructions for plan. [] Dragon Disclaimer Dragon Disclaimer This chart was dictated in whole or in part using Voice Recognition software in a busy, high-work load, and often noisy Emergency Department environment. It may contain unintended and wholly unrecognized errors or omissions. Departure Departure: Impression: Primary Impression: Back pain Additional Impression: History of sickle cell anemia Disposition: 01 HOME, SELF-CARE Condition: IMPROVED Referrals: PCPMICHAEL (PCP) Patient Instructions: Sickle Cell Pain Crisis, [id number] Additional Instructions: Today, you had pain medication and Benadryl in the emergency department. No driving for 12 hours because of the medications you're given. Stay home and rest today. Drink plenty of fluids. Stay well-hydrated. Stay warm. Follow-up with your forensic document examiner as planned, return to ED if you have fever 100.4 or higher. Problem Qualifiers SEBASTIAN LEMA MD Apr 14, 2017 07:26
[2017-04-14 07:35] VITALS: BP 128/91
[2017-04-14 08:14] LABS: ANISOCYTOSIS SLIGHT; HYPOCHROMIA MOD; MICROCYTOSIS PRESENT; PLT ESTIMATE ADEQUATE (ADEQUATE); TARGET CELLS MOD
== END 2017-04-14 07:35 | disposition home or self-care (01) ==
LOC: ER 02:34
DX: M54.9 Dorsalgia, unspecified (principal); M25.511 Pain in right shoulder; Z86.2 Personal history of diseases of the blood and blood-forming organs and certain disorders involving the immune mechanism; Z88.0 Allergy status to penicillin; Z88.5 Allergy status to narcotic agent; Z88.8 Allergy status to other drugs, medicaments and biological substances
CPT/HCPCS: 36415; 80053; 81001; 81025; 85025; 85045; 96361; 96374; 96375; 96376; 99284; J1170; J1200; J7030